=== PATIENT | male | born 1945 ===

== ENCOUNTER 2022-04-27 19:34 | Emergency (ER) | payer SELFPAY ==
[2022-04-27] MEDS ORDERED: EPINEPHrine 1 MG/10 ML SYR IV ONE (19:35)
[2022-04-27] MEDS ORDERED: NA CHLORIDE 0.9% 1,000 ML IV ONE (19:35)
[2022-04-27] MEDS ORDERED: Caclcium Chloride 10% INJ SYR IV ONE (19:35)
--- NOTE | 2022-04-27 19:58 | EDPHYS ---
Physician Documentation [facility] Name: Nikolai Roldan Age: 76 yrs Sex: Male : 1945 Arrival Date: 04/27/2022 Time: 19:43 Bed 6 Private MD: ED Physician Lucio Infante HPI: 04/27 19:49 This 76 yrs old Male presents to ER via Unassigned with complaints of aleksandr Unresponsive. 19:49 Preceding the arrest, the patient collapsed. The arrest occurred at home. Pre-hospital aleksandr course: The arrest was witnessed Bystanders at the scene performed CPR. EMS care prior to arrival: initiation of ACLS, peripheral IV, intubation oxygen, backboard, ACLS details: Initial rhythm was PEA. The presenting rhythm is asystole. Airway: LMA, Medications given by EMS prior to arrival - Epinephrine IV x 3 doses, bicarb x1. The patient has not experienced similar symptoms in the past. Historical: - Allergies: 19:25 No Known Allergies; as6 - Home Meds: 19:25 None [Active]; as6 - PMHx: 19:25 None; as6 - PSHx: 19:25 None; as6 - Family history:: not pertinent. ROS: 19:54 Unable to obtain ROS due to cpr in progress. aleksandr Exam: 19:54 Cardiovascular: Rate: actual rate is 0 bpm, Rhythm: asystole, Pulses: not palpable, aleksandr Heart sounds: none, Edema: is not appreciated, JVD: is not appreciated. 19:54 Respiratory: Respiratory rate: zero 19:54 Abdomen/GI: Inspection: distension, that is mild, Bowel sounds: absent, Palpation: soft, Liver: no appreciated palpable abnormalities, Hernia: not appreciated. 19:54 Skin: Appearance: cyanosis. Vital Signs: 19:40 Temp 97.5(R); Weight 72 kg; as6 MDM: 19:46 Patient medically screened. aleksandr Administered Medications: 19:29 Drug: Calcium Chloride 1 grams Route: IVP; Site: left antecubital; as6 19:30 Drug: Sodium Bicarbonate 1 amp Route: IVP; Site: left antecubital; as6 19:31 Drug: EPINEPHrine 0.1mg/mL 1:10,000 1 mg Route: IVP; Site: left antecubital; as6 19:34 Drug: EPINEPHrine 0.1mg/mL 1:10,000 1 mg Route: IVP; Site: left antecubital; as6 19:37 Drug: EPINEPHrine 0.1mg/mL 1:10,000 1 mg Route: IVP; Site: left antecubital; as6 19:38 Drug: NS 0.9% 1000 ml Route: IV; Rate: 1 bolus; Site: left antecubital; as6 19:41 Drug: EPINEPHrine 0.1mg/mL 1:10,000 1 mg Route: IVP; Site: left antecubital; as6 Point of Care Testing: Blood Glucose: 19:40 Blood Glucose: 206 mg/dL; as6 Ranges: Critical Glucose Levels:Adult <50 mg/dl or >400 mg/dl <40 mg/dl or >180 mg/dl Disposition Summary: 04/27/22 19:57 Patient Location: Home aleksandr Pronouncing Physician: Lucio Infante cha Time of : 19:43 04/27/2022 aleksandr Diagnosis - Cardiac arrest, cause unspecified aleksandr - Acute respiratory failure aleksandr Signatures: Lucio Infante MD MD cha Slawson, Ashby, RN RN as6
--- NOTE | 2022-04-27 22:46 | ER ---
Nurse's Notes [facility] Name: Nikolai Roldan Age: 76 yrs Sex: Male : 1945 Arrival Date: 04/27/2022 Time: 19:43 Bed 6 Private MD: Diagnosis: Cardiac arrest, cause unspecified;Acute respiratory failure Presentation: 04/27 19:25 Chief complaint: EMS states: called out for unresponsive, on seen EMS initiated CPR, as6 states that her and pt were having intercourse and when they were done he went unresponsive, attempted CPR also. EMS initiated SATHISH tube, IV, gave epi x3 bicard x1. 19:25 Care prior to arrival: Assisted ventilation, CPR via thumper and is still in progress as6 Medication(s) given: epi x3 bicard x1 IV initiated. 18 GA, in the left antecubital area. Compressions began prior to arrival. 19:25 Method Of Arrival: EMS: [facility] as6 19:25 Acuity: ZE 1 as6 Historical: - Allergies: 19:25 No Known Allergies; as6 - Home Meds: 19:25 None [Active]; as6 - PMHx: 19:25 None; as6 - PSHx: 19:25 None; as6 - Family history:: not pertinent. Assessment: 19:25 CPR assessment: pupils fixed \T\ dilated, no respiratory effort, Ambu ventilation, pale. as6 19:25 Cardiac rhythm is asystole. as6 Vital Signs: 19:40 Temp 97.5(R); Weight 72 kg; as6 ED Course: 19:27 Maintain EMS IV. Dressing intact. Good blood return noted. Site clean \T\ dry. Gauge \T\ as 6 site: 18g LAC. 19:31 Intubation: 7.5 Fr. ETT placed orally. Performed by Lucio Infante MD Successful on as6 first attempt. Placement verified by auscultating bilateral breath sounds, Ventilated with Ambu bag. 19:40 Patient was paced with an external pacer. Rate set at 60 in beats/min. Current set to as6 60 milliamps, Capture was not noted. 19:43 Patient arrived in ED. wm 19:45 Fady Tello, NILDA is Primary Nurse. as6 19:45 Lucio Infante MD is Attending Physician. [facility] 19:57 Lucio Infante MD is Pronouncing Provider. [facility] 04/28 04:57 Triage completed. as6 Administered Medications: 04/27 19:29 Drug: Calcium Chloride 1 grams Route: IVP; Site: left antecubital; as6 19:30 Drug: Sodium Bicarbonate 1 amp Route: IVP; Site: left antecubital; as6 19:31 Drug: EPINEPHrine 0.1mg/mL 1:10,000 1 mg Route: IVP; Site: left antecubital; as6 19:34 Drug: EPINEPHrine 0.1mg/mL 1:10,000 1 mg Route: IVP; Site: left antecubital; as6 19:37 Drug: EPINEPHrine 0.1mg/mL 1:10,000 1 mg Route: IVP; Site: left antecubital; as6 19:38 Drug: NS 0.9% 1000 ml Route: IV; Rate: 1 bolus; Site: left antecubital; as6 19:41 Drug: EPINEPHrine 0.1mg/mL 1:10,000 1 mg Route: IVP; Site: left antecubital; as6 Point of Care Testing: Blood Glucose: 19:40 Blood Glucose: 206 mg/dL; as6 Ranges: Outcome: 19:43 Outcome Patient as6 19:43 Patient : Time of 19:43 Pronounced by Lucio Infante MD Body released to as6 ME 19:43 Condition: 22:45 Patient left the ED. as6 Signatures: Lucio Infante MD MD cha Marsh, Wendy wm Slawson, Ashby RN RN as6 Corrections: (The following items were deleted from the chart) 04/28 04:32 04/27 19:51 Chief complaint: as6 as6
== END 2022-04-27 22:45 | disposition expired ==
LOC: ER 19:34
DX: I46.9 Cardiac arrest, cause unspecified (principal); J96.00 Acute respiratory failure, unspecified whether with hypoxia or hypercapnia
CPT/HCPCS: 31500; 92950; 92953; 96374; 96375; 99285; J0171; J7030